=== PATIENT | female | born 1935 | race American Indian/Alaskan Native ===

== ENCOUNTER 2016-06-19 16:40 | Outpatient (CLI) | payer MEDICARE, MEDICAID ==
[2016-06-19 17:51] LABS: Basophils % (Auto) 0.4 % (0.0-1.8); Hematocrit 43.1 % (30.3-42.9); Hemoglobin 13.7 gm/dl (10.1-14.3); Mean Corpuscular HGB Conc 32 % (30-34); Mean Corpuscular Hemoglobin 27 pg (28-32); Mean Corpuscular Volume 86 fl (79-97); Platelet Count 246 K/mm3 (140-440); Red Blood Count 5.04 M/mm3 (3.65-5.03); Red Cell Distribution Width 13.6 % (13.2-15.2); White Blood Count 8.1 K/mm3 (4.5-11.0)
[2016-06-19] MEDS ORDERED: NACL ONE (17:54)
[2016-06-19 18:21] LABS: Albumin 4.7 g/dL (3.9-5); Albumin/Globulin Ratio 1.5 %; BUN/Creatinine Ratio 20.9; Bilirubin,Total 0.8 mg/dL (0.1-1.2); Calcium 9.4 mg/dL (8.4-10.2); Chloride 97.4 mmol/L (98-107); Potassium 5.2 mmol/L (3.6-5.0); Total Protein 7.9 g/dL (6.3-8.2)
--- NOTE | 2016-06-19 19:24 | Cat Scan Report ---
FINAL REPORT PROCEDURE: CT ANGIO CHEST TECHNIQUE: Computerized tomographic angiography of the chest was performed after the IV injection of iodinated nonionic contrast including image processing. The image data was postprocessed using 2-dimensional multiplanar reformatted (MPR) and 3-dimensional (MIP and/or volume rendered) techniques. HISTORY: PE PROTOCOL,SOB COMPARISON: No prior studies are available for comparison. FINDINGS: Low attenuated lesion in the lower pole right thyroid gland measures 9 by 7 millimeters and warrants followup thyroid ultrasound to further evaluate. Heart and pericardium: Normal. Thoracic aorta: Moderately calcified atherosclerosis. Pulmonary vasculature: Normal. Lymph nodes: 1.5 x 0.9 centimeter subcarinal lymph node. Suspect non opacification of the azygos vein.. Lungs: Minimal lower lung zone patchy atelectasis with. Pleural space: No effusion, thickening, or pneumothorax. Musculoskeletal structures: No significant abnormality. Diffuse anterior longitudinal ligament calcification Upper abdominal structures: Low attenuated lesion left mid kidney 1.5 centimeters probable cyst with other low attenuated areas also present in each kidney. Fatty infiltration liver with lobular low attenuated area left lobe of liver lateral segment measuring 2.8 x 2.0 centimeters possibly cystic.. Diffuse pancreatic atrophy with multiple areas of low attenuated lobular appearance throughout the pancreas could reflect cystic replacement however cystic mass or malignancy is not excludable. Followup contrast-enhanced CT scan with pancreatic protocol is advised to further corroborate. No prior studies on file for correlation. These prominent areas in the pancreas seen in the proximal pancreatic body measuring 1.5 centimeters and in the pancreatic head approaching the uncinate process 2.3 centimeters. IMPRESSION: No evidence of PE Minimal atelectasis Findings as described above Followup is advised
== END 2016-06-19 16:41 | disposition home or self-care (01) ==
LOC: CT 16:40
PROVIDERS: ATTEND Internal Medicine
DX: R06.02 Shortness of breath (principal)
CPT/HCPCS: 36415; 71275; 80053; 80061; 82785; 84439; 84443; 85025; Q9967